=== PATIENT | female | born 1965 | race African-American/Black ===

== ENCOUNTER 2023-06-13 07:15 | Day surgery (SDC) | payer OTHER ==
[2023-06-08 09:51] VITALS: BMI 28.3
[2023-06-13] MEDS ORDERED: ceFAZolin SODIUM 1 GM VIAL IVPB ONE (07:52)
[2023-06-13] MEDS ORDERED: DEXAMETHASONE SOD PHOSPHATE 4 MG/1 ML VIAL ONE (07:56)
[2023-06-13] MEDS ORDERED: ceFAZolin SODIUM 1 GM VIAL ONE (07:56)
[2023-06-13] MEDS ORDERED: IBUPROFEN 400 MG TABLET (FP) PO PRN (07:59)
[2023-06-13] MEDS ORDERED: ACETAMINOPHEN 325 MG TABLET (FP) PO PRN (07:59)
[2023-06-13] MEDS ORDERED: KETOROLAC TROMETHAMINE 30 MG/1 ML VIAL ONE (08:31)
[2023-06-13] MEDS ORDERED: ONDANSETRON 4 MG/2 ML VIAL ONE (08:31)
[2023-06-13] MEDS ORDERED: PROMETHAZINE HCL 25 MG/1 ML VIAL IVPB PRN (08:45)
[2023-06-13] MEDS ORDERED: ONDANSETRON 4 MG/2 ML VIAL IVPUSH PRN (08:45)
[2023-06-13] MEDS ORDERED: LACTATED RINGERS SOLUTION 1,000 ML IV SCH (08:45)
[2023-06-13] MEDS ORDERED: oxyCODONE HCL 5 MG TABLET PO PRN ×2 (08:45)
[2023-06-13] MEDS ORDERED: ACETAMINOPHEN 1000 MG/100 ML BAG IVPB ONE (08:46)
[2023-06-13] MEDS ORDERED: ACETAMINOPHEN INJECTION 100 ML IVPB ONE (09:00)
[2023-06-13 11:30] VITALS: RESP 20; TEMP 97.2
[2023-06-13 14:50] VITALS: BP 165/85; PULSE 65
== END 2023-06-13 12:11 | disposition home or self-care (01) ==
LOC: JASU-SURG 07:15
PROVIDERS: ATTEND Obstetrics & Gynecology
PROC: 0UB98ZZ Excision of Uterus, Via Natural or Artificial Opening Endoscopic (ICD-10-PCS; principal; 2023-06-13 07:30)
PROC: 0UBC7ZX Excision of Cervix, Via Natural or Artificial Opening, Diagnostic (ICD-10-PCS; 2023-06-13 07:30)
DX: D25.0 Submucous leiomyoma of uterus (principal); N85.00 Endometrial hyperplasia, unspecified; R87.622 Low grade squamous intraepithelial lesion on cytologic smear of vagina (LGSIL)
CPT/HCPCS: 88305-TC; 88307-TC; 88341-TC; 88342-TC; 94760